=== PATIENT | female | born 1950 | race African-American/Black ===

== ENCOUNTER 2022-12-20 11:00 | Emergency (ER) | payer MEDICARE ==
[~2022-12-20] VITALS: Ht 167.6 cm; Wt 64.0 kg
[2022-12-20 11:50] LABS: BASOPHILS % 0.8 % (0.0-2.0); EOSINOPHILS % 1.2 % (0.0-5.0); HEMATOCRIT. 46.4 % (36.0-48.0); HEMOGLOBIN. 15.5 g/dL (12.0-16.0); LYMPHOCYTES % 27.3 % (20.0-50.0); MEAN CORPUSCULAR HEMOGLOBIN 29.6 pg (28.0-32.0); MEAN CORPUSCULAR VOLUME 88.5 fL (81.0-99.0); MEAN PLATELET VOLUME 8.5 fl (7.4-10.4); MONOCYTES % 6.9 % (2.0-8.0); NEUTROPHILS % 63.8 % (40.0-76.0); PLATELET 344 x1000/uL (130-400); RED BLOOD CELL COUNT 5.24 mill/uL (4.2-5.4); RED CELL DISTRIBUTION WIDTH 15.6 % (11.6-14.6)
[2022-12-20 11:56] LABS: CLARITY URINE CLEAR (CLEAR); COLOR URINE YELLOW (YELLOW); KETONES URINE NEGATIVE (NEGATIVE); LEUKOCYTE ESTERASE URINE NEGATIVE (NEGATIVE); NITRITE URINE NEGATIVE (NEGATIVE); OCCULT BLOOD URINE NEGATIVE (NEGATIVE); PROTEIN URINE 2+ (NEGATIVE); SPECIFIC GRAVITY URINE 1.009 (1.005-1.030); UROBILINOGEN URINE 0.2 E.U./dL (0.2-1.0)
[2022-12-20 11:57] LABS: CHLORIDE 103 mEq/L (98-107)
[2022-12-20] MEDS ORDERED: ACETAMINOPHEN 325MG TABLET PO ONE (14:15)
[2022-12-20 15:00] VITALS: BP 203/87
[2022-12-20] MEDS ORDERED: AMLODIPINE 10MG TABLET PO ONE (15:00)
== END 2022-12-20 22:19 | disposition left against medical advice (07) ==
LOC: ER 11:00
DX: R55 Syncope and collapse (principal); I10 Essential (primary) hypertension; E11.9 Type 2 diabetes mellitus without complications
CPT/HCPCS: 36415; 71045; 80053; 81003; 83880; 84484; 85025; 93005; 99285